=== PATIENT | female | born 1945 | race Caucasian/White ===

== ENCOUNTER 2017-09-18 10:48 | Emergency (ER) | payer MEDICARE ==
[2017-09-18] MEDS ORDERED: ASPIRIN 81 MG TABLET, CHEWABLE PO ONE (11:58)
[2017-09-18 12:41] LABS: ABSOLUTE BASOPHILS # (AUTO) 0.1 10^3/uL (0.0-0.2); ABSOLUTE EOSINOPHILS # (AUTO) 0.1 10^3/uL (0.0-0.6); ABSOLUTE LYMPHOCYTES (AUTO) 2.6 10^3/uL (0.5-4.7); ABSOLUTE MONOCYTES (AUTO) 0.6 10^3/uL (0.1-1.4); ABSOLUTE NEUT (AUTO) 7.2 10^3/uL (1.7-8.2); BASOPHILS % (AUTO) 0.7 % (0-2); EOSINOPHILS % (AUTO) 0.8 % (0-6); HEMATOCRIT 41.8 % (36.0-47.0); HGB HCT DIFFERENCE 0.2; LYMPHOCYTES % (AUTO) 24.3 % (13-45); MEAN CORPUSCULAR HEMOGLOBIN 30.3 pg (27.0-33.4); MEAN CORPUSCULAR HGB CONC 33.5 g/dL (32.0-36.0); MEAN CORPUSCULAR VOLUME 91 fl (80-97); RED BLOOD COUNT 4.61 10^6/uL (3.72-5.28); SEGMENTED NEUTROPHILS % (AUTO) 68.2 % (42-78); WHITE BLOOD COUNT 10.6 10^3/uL (4.0-10.5)
[2017-09-18 13:04] LABS: ALANINE AMINOTRANSFERASE 38 U/L (9-52); ALBUMIN 4.3 g/dL (3.5-5.0); ALKALINE PHOSPHATASE 67 U/L (38-126); ANION GAP 12 (5-19); ASPARTATE AMINO TRANSFERASE 72 U/L (14-36); BILIRUBIN,DIRECT 0.3 mg/dL (0.0-0.4); BILIRUBIN,TOTAL 0.5 mg/dL (0.2-1.3); BLOOD UREA NITROGEN 15 mg/dL (7-20); CALCIUM 9.5 mg/dL (8.4-10.2); CARBON DIOXIDE 26 mmol/L (22-30); CHLORIDE 105 mmol/L (98-107); CREATINE KINASE 389 U/L (30-135); CREATININE RESULT 0.82 mg/dL (0.52-1.25); GLUCOSE 95 mg/dL (75-110); SODIUM 143.2 mmol/L (137-145); TOTAL PROTEIN 7.1 g/dL (6.3-8.2)
[2017-09-18 13:16] LABS: CREATINE KINASE MB 27.2 ng/mL (<4.55)
[2017-09-18 13:22] LABS: TROPONIN I 4.97 ng/mL
[2017-09-18 13:23] LABS: APPEARANCE,URINE SLIGHTLY-CLOUDY; BILIRUBIN,URINE NEGATIVE (NEGATIVE); GLUCOSE, URINE NEGATIVE (NEGATIVE); KETONES,URINE NEGATIVE (NEGATIVE); LEUKOCYTE ESTERASE,URINE NEGATIVE (NEGATIVE); NITRITE,URINE NEGATIVE (NEGATIVE); PROTEIN,URINE NEGATIVE (NEGATIVE); URINE SPECIFIC GRAVITY 1.008; UROBILINOGEN,URINE NEGATIVE mg/dL (<2.0)
[2017-09-18] MEDS ORDERED: HEPARIN SODIUM,PORCINE/D5W 25,000 UNIT/250 ML RTUINJ IV PRN (13:26)
[2017-09-18] MEDS ORDERED: HEPARIN SOD (PORCINE) 1,000 UNIT/ML 10 ML VIAL IV ONE (13:26)
--- NOTE | 2017-09-18 13:28 | RADIOLOGY REPORT (SQ) ---
EXAM DESCRIPTION: CHEST SINGLE VIEW COMPLETED DATE/TIME: 09/18/2017 12:57 pm REASON FOR STUDY: chest pain COMPARISON: None. EXAM PARAMETERS: NUMBER OF VIEWS: One view. TECHNIQUE: Single frontal radiographic view of the chest acquired. RADIATION DOSE: NA LIMITATIONS: None. FINDINGS: LUNGS AND PLEURA: No opacities, masses or pneumothorax. No pleural effusion. MEDIASTINUM AND HILAR STRUCTURES: No masses. Contour normal. HEART AND VASCULAR STRUCTURES: Mild cardiomegaly. Tortuous uncoiled thoracic aorta BONES: Osteoporotic. Right humeral head replacement HARDWARE: None in the chest. OTHER: No other significant finding. IMPRESSION: No acute changes TECHNICAL DOCUMENTATION: JOB ID: [id number] [employer]- All Rights Reserved
--- NOTE | 2017-09-18 13:33 | ER Document Report ---
ED General - General Chief Complaint: Chest Pain Stated Complaint: CHEST PAIN IRREGULAR HEART RATE Time Seen by Provider: 09/18/17 11:55 Mode of Arrival: Ambulatory Information source: Patient Notes: 72 yr old female hx of htn and hypercholesterolemia for which she does not take meds over the past 3 years presents with 2 hours of chest pressure sensation with diaphoresis and sob. pt denies any fevers or chills, denies any similar episode. Pt does note that normal stress test about 15 years ago. pt states upon arrivla chest pain has since resolved TRAVEL OUTSIDE OF THE [place] IN LAST 30 DAYS: No - HPI Onset: Just prior to arrival Onset/Duration: Sudden Quality of pain: Pressure Severity: Moderate Pain Level: 2 Associated symptoms: Chest pain, Shortness of breath, Sweating Exacerbated by: Denies Relieved by: Denies Similar symptoms previously: No Recently seen / treated by doctor: No Past Medical History - Social History Smoking Status: Former Smoker Cigarette use (# per day): No Chew tobacco use (# tins/day): No Smoking Education Provided: No Family History: Reviewed & Not Pertinent Patient has suicidal ideation: No Patient has homicidal ideation: No Renal/ Medical History: Denies: Hx Peritoneal Dialysis Review of Systems - Review of Systems Notes: REVIEW OF SYSTEMS: CONSTITUTIONAL : Denies fever, chills, or sweats. Denies recent illness. EENT: Denies eye, ear, throat, or mouth pain or symptoms. Denies nasal or sinus congestion or discharge. Denies throat, tongue, or mouth swelling or difficulty swallowing. CARDIOVASCULAR: admits to chest pain RESPIRATORY: admits to sob GASTROINTESTINAL: Denies abdominal pain or distention. Denies nausea, vomiting , or diarrhea. Denies blood in vomitus, stools, or per rectum. Denies black, tarry stools. Denies constipation. GENITOURINARY: Denies difficulty urinating, painful urination, burning, frequency, blood in urine, or discharge. FEMALE GENITOURINARY: Denies vaginal bleeding, heavy or abnormal periods, irregular periods. Denies vaginal discharge or odor. MUSCULOSKELETAL: Denies back or neck pain or stiffness. Denies joint pain or swelling. SKIN: Denies rash, lesions or sores. HEMATOLOGIC : Denies easy bruising or bleeding. LYMPHATIC: Denies swollen, enlarged glands. NEUROLOGICAL: Denies confusion or altered mental status. Denies passing out or loss of consciousness. Denies dizziness or lightheadedness. Denies headache. Denies weakness or paralysis or loss of use of either side. Denies problems with gait or speech. Denies sensory loss, numbness, or tingling. Denies seizures. PSYCHIATRIC: Denies anxiety or stress. Denies depression, suicidal ideation, or homicidal ideation. ALL OTHER SYSTEMS REVIEWED AND NEGATIVE. PHYSICAL EXAMINATION: GENERAL: Well-appearing, well-nourished and in no acute distress. HEAD: Atraumatic, normocephalic. EYES: Pupils equal round and reactive to light, extraocular movements intact, conjunctiva are normal. ENT: Nares patent, oropharynx clear without exudates. Moist mucous membranes. NECK: Normal range of motion, supple without lymphadenopathy LUNGS: Breath sounds clear to auscultation bilaterally and equal. No wheezes rales or rhonchi. HEART: Regular rate and rhythm without murmurs ABDOMEN: Soft, nontender, nondistended abdomen. No guarding, no rebound. No masses appreciated. Female : deferred Musculoskeletal: Normal range of motion, no pitting or edema. No cyanosis. NEUROLOGICAL: Cranial nerves grossly intact. Normal speech, normal gait. Normal sensory, motor exams PSYCH: Normal mood, normal affect. SKIN: Warm, Dry, normal turgor, no rashes or lesions noted. Dictation was performed using [employer] voice recognition software Physical Exam - Vital signs Vitals: Temp Pulse Resp BP Pulse Ox 98.2 F 106 H 18 129/85 H 98 09/18/17 11:00 09/18/17 11:00 09/18/17 11:00 09/18/17 11:00 09/18/17 11:00 Course - Re-evaluation Re-evalutation: 09/18/17 13:31 nstemi vs stemi based on elevated tropoin, luly lrepeat ekg [facility] call back from refinery operator polymerization [employer] to see if he would consider this an STEMI 09/18/17 14:01 Dr Azael mendez cardio accepts patient for transfer, states he does not believe it is a stemi, erquests heparin drip which has already been ordered 09/18/17 14:19 pt is compeltely pain free, awaiting transport - Vital Signs Vital signs: Temp Pulse Resp BP Pulse Ox 98.2 F 106 H 19 148/83 H 99 09/18/17 11:00 09/18/17 11:00 09/18/17 13:06 09/18/17 12:48 09/18/17 13:06 - Laboratory Result Diagrams: 09/18/17 12:24 09/18/17 12:24 Laboratory results interpreted by me: 09/18/17 09/18/17 09/18/17 12:24 12:24 12:24 WBC 10.6 H AST 72 H Creatine Kinase 389 H CK-MB (CK-2) 27.20 H - Diagnostic Test Radiology reviewed: Image reviewed, Reports reviewed - EKG Interpretation by Me EKG shows normal: Sinus rhythm, [place], Intervals, QRS Complexes Rate: Tachycardia [place]/QRS: LBBB When compared to previous EKG there are: Previous EKG unavailable Critical Care Note - Critical Care Note Total time excluding time spent on procedures (mins): 32 Comments: 32 minutes of critical care time spent in direct contact evaluating and reevaluating the patient, treating symptoms, reviewing labs and studies and speaking with family and consultants excluding any procedures Discharge - Discharge Clinical Impression: NSTEMI (non-ST elevated myocardial infarction) Condition: Fair Disposition: [facility]
[2017-09-18 13:43] LABS: PROTHROMBIN TIME 12.8 SEC (11.4-15.4)
[2017-09-18 13:49] LABS: PARTIAL THROMBOPLASTIN TIME 23.5 SEC (23.5-35.8)
[2017-09-18] MEDS ORDERED: HEPARIN SOD (PORCINE) 1,000 UNIT/ML 10 ML VIAL IV PRN (16:26)
--- NOTE | 2017-09-18 19:22 | ER Document Report ---
Doctor's Note Notes: 09/18/17 19:21 Patient alert and oriented 3 vital signs stable transport here to pick him up for transfer.
[2017-09-18 19:33] VITALS: BP 157/87
--- NOTE | 2017-09-18 23:13 | EKG REPORT ---
SEVERITY:- ABNORMAL ECG - SINUS RHYTHM LEFT VENTRICULAR HYPERTROPHY PROBABLE INFERIOR INFARCT, OLD LATERAL LEADS ARE ALSO INVOLVED ANTERIOR ST ELEVATION, PROBABLY DUE TO LVH BORDERLINE PROLONGED QT INTERVAL : Confirmed by: Jihan Huang 18-Sep-2017 23:13:07
--- NOTE | 2017-09-18 23:14 | EKG REPORT ---
SEVERITY:- ABNORMAL ECG - SINUS TACHYCARDIA PROBABLE LEFT ATRIAL ABNORMALITY LEFT VENTRICULAR HYPERTROPHY PROBABLE INFERIOR INFARCT, OLD CONSIDER ANTERIOR INFARCT LATERAL LEADS ARE ALSO INVOLVED BORDERLINE PROLONGED QT INTERVAL : Confirmed by: Jihan Huang 18-Sep-2017 23:13:37
== END 2017-09-18 19:30 | disposition short-term general hospital (02) ==
LOC: ER 10:48
DX: I21.4 Non-ST elevation (NSTEMI) myocardial infarction (principal); R06.02 Shortness of breath; I49.9 Cardiac arrhythmia, unspecified; E78.00 Pure hypercholesterolemia, unspecified; I10 Essential (primary) hypertension; Z87.891 Personal history of nicotine dependence
CPT/HCPCS: 93005; 99285; 96365; 96366; 36415; 82553; 82550; 85025; 85610; 85730; 80053; 81001; 84484; 71010; 93010; J1644 ×2; A9270

== ENCOUNTER 2018-02-14 10:20 | Day surgery (SDC) | payer MEDICARE ==
[~2018-02-14 10:20] MED LIST: CHONDR SU A NA/HYALUR INTRAOC KIT (SURGICARE) ONE; EPINEPHRINE INJ/PF 1 MG/1 ML AMPULE ONE; KETOROLAC TROMETHAMINE 0.45% 4 DROP/0.4 ML DROPERETTE OS PRN; LIDOCAINE 1% INJ-PF (10 MG/ML) 30 ML SDV ONE; TOBRAMYCIN SULFATE/DEXAMETH OPH OINTMENT 3.5 GM ONE
[2018-02-14] MEDS: TROPICAMIDE 1% OPH SOLN 3 ML OS PRN ×3 (10:52→11:09)
[2018-02-14] MEDS: BESIFLOXACIN HCL 0.6% OPH SUSP 5 ML BOTTLE OS PRN ×3 (10:52→12:00)
[2018-02-14] MEDS: TETRACAINE HCL 0.5% OPH SOLN 0.6 ML DROPERETTE OS PRN ×3 (10:52→11:43)
[2018-02-14] MEDS: CYCLOPENTOLATE 0.2%/PHENYLEPHRINE 1% OPH SOLN 2 ML OS PRN ×3 (10:52→11:09)
[2018-02-14] MEDS ORDERED: MIDAZOLAM 2 MG/2 ML INJ ONE (11:35)
[2018-02-14] MEDS ORDERED: FENTANYL CITRATE INJ/PF 100 MCG/2 ML AMPUL ONE (11:36)
== END 2018-02-14 12:35 | disposition home or self-care (01) ==
LOC: SC 10:20
PROVIDERS: ATTEND Ophthalmology
DX: H25.12 Age-related nuclear cataract, left eye (principal); H40.1121 Primary open-angle glaucoma, left eye, mild stage; I10 Essential (primary) hypertension; E78.00 Pure hypercholesterolemia, unspecified; I25.10 Atherosclerotic heart disease of native coronary artery without angina pectoris; R01.1 Cardiac murmur, unspecified; I49.9 Cardiac arrhythmia, unspecified; Z95.2 Presence of prosthetic heart valve; Z95.0 Presence of cardiac pacemaker; I25.2 Old myocardial infarction; Z86.14 Personal history of Methicillin resistant Staphylococcus aureus infection; Z79.82 Long term (current) use of aspirin; Z79.01 Long term (current) use of anticoagulants; Z87.891 Personal history of nicotine dependence
CPT/HCPCS: 0191T; 66984; 142; C1783; J0171; J2250; J3010; J3490; V2630

== ENCOUNTER 2018-02-28 07:12 | Day surgery (SDC) | payer MEDICARE ==
[~2018-02-28 07:12] MED LIST changes: -CHONDR SU A NA/HYALUR INTRAOC KIT (SURGICARE) ONE; -EPINEPHRINE INJ/PF 1 MG/1 ML AMPULE ONE; +KETOROLAC TROMETHAMINE 0.45% 4 DROP/0.4 ML DROPERETTE OD PRN; -KETOROLAC TROMETHAMINE 0.45% 4 DROP/0.4 ML DROPERETTE OS PRN; -LIDOCAINE 1% INJ-PF (10 MG/ML) 30 ML SDV ONE; -TOBRAMYCIN SULFATE/DEXAMETH OPH OINTMENT 3.5 GM ONE
[2018-02-28] MEDS: TROPICAMIDE 1% OPH SOLN 3 ML OD PRN ×3 (07:22→07:51)
[2018-02-28] MEDS: CYCLOPENTOLATE 0.2%/PHENYLEPHRINE 1% OPH SOLN 2 ML OD PRN ×3 (07:22→07:51)
[2018-02-28] MEDS: BESIFLOXACIN HCL 0.6% OPH SUSP 5 ML BOTTLE OD PRN ×3 (07:23→08:32)
[2018-02-28] MEDS: TETRACAINE HCL 0.5% OPH SOLN 0.6 ML DROPERETTE OD PRN ×3 (07:24→08:13)
[2018-02-28] MEDS ORDERED: MIDAZOLAM 2 MG/2 ML INJ ONE (07:25)
[2018-02-28] MEDS ORDERED: CHONDR SU A NA/HYALUR INTRAOC KIT (SURGICARE) ONE (07:33)
[2018-02-28] MEDS ORDERED: EPINEPHRINE INJ/PF 1 MG/1 ML AMPULE ONE (07:33)
[2018-02-28] MEDS ORDERED: TOBRAMYCIN SULFATE/DEXAMETH OPH OINTMENT 3.5 GM ONE (07:33)
[2018-02-28] MEDS ORDERED: LIDOCAINE 1% INJ-PF (10 MG/ML) 30 ML SDV ONE (07:33)
== END 2018-02-28 09:03 | disposition home or self-care (01) ==
LOC: SC 07:12
PROVIDERS: ATTEND Ophthalmology
DX: H25.11 Age-related nuclear cataract, right eye (principal); H40.1131 Primary open-angle glaucoma, bilateral, mild stage; Z98.42 Cataract extraction status, left eye; I10 Essential (primary) hypertension; I25.10 Atherosclerotic heart disease of native coronary artery without angina pectoris; E78.00 Pure hypercholesterolemia, unspecified; Z79.82 Long term (current) use of aspirin; Z79.899 Other long term (current) drug therapy; Z79.01 Long term (current) use of anticoagulants; Z87.891 Personal history of nicotine dependence; Z95.2 Presence of prosthetic heart valve; Z95.0 Presence of cardiac pacemaker
CPT/HCPCS: 0191T; 66984; 142; C1783; J0171; J2250; J3490; V2630

== ENCOUNTER 2018-06-01 13:06 | Inpatient (IN) | payer MEDICARE ==
[2018-06-01] MEDS ORDERED: ASPIRIN 81 MG TABLET, CHEWABLE PO ONE (14:03)
--- NOTE | 2018-06-01 14:06 | ER Document Report ---
ED Medical Screen (RME) - General Chief Complaint: Chest Pain Stated Complaint: CHEST PAIN Time Seen by Provider: 06/01/18 13:57 Mode of Arrival: Ambulatory Information source: Patient TRAVEL OUTSIDE OF THE [place] IN LAST 30 DAYS: No - HPI Patient complains to provider of: Pressure Onset: Other - 72-year-old female with a history of coronary artery disease status post bypass as well as other medical problems who presents for evaluation of chest pressure last night for which she took 4 baby aspirin and subsequently went back to sleep waking up today she had some discomfort called the labor arbitrator's office who suggested that she present for evaluation of potential heart attack. She is currently not experiencing any discomfort, she has had episodes of dizziness over the last 2 months - Related Data Allergies/Adverse Reactions: No Known Allergies Allergy (Verified 02/14/18 11:13) Past Medical History - Social History Frequency of alcohol use: None Drug Abuse: Marijuana - Past Medical History Cardiac Medical History: Reports: Hx Heart Attack - 09/2017, Hx Hypertension - medicated Pulmonary Medical History: Denies: Hx Asthma Neurological Medical History: Denies: Hx Cerebrovascular Accident, Hx Seizures Renal/ Medical History: Denies: Hx Peritoneal Dialysis GI Medical History: Reports: Hx Hepatitis - HEP C 15 YEARS AGO/remission. Denies: Hx Hiatal Hernia, Hx Ulcer Infectious Medical History: Reports: Hx Hepatitis - HEP C 15 YEARS AGO/remission Past Surgical History: Reports: Hx Open Heart Surgery - 09/2017, Hx Pacemaker. Denies: Hx Hysterectomy, Hx Mastectomy Physical Exam - Vital signs Vitals: Temp Pulse Resp BP Pulse Ox 98.2 F 70 20 111/74 97 06/01/18 13:23 06/01/18 13:23 06/01/18 13:23 06/01/18 13:23 06/01/18 13:23 Course - Re-evaluation Re-evalutation: 06/01/18 14:05 This 72-year-old female presents for evaluation of an episode of chest pain last night which resolved after taking 4 baby aspirin. She has had episodes of dizziness over the last several months for which she has been seen by her labor arbitrator as well as her general practitioner without any obvious identified causes. On examination she is no obvious abnormalities, no active chest pain at this time. Neurologically she is intact. We will initiate cardiac workup and rule out for this patient. In that she 72 with multiple risk factors will defer further imaging or diagnostics at this time will plan for telemetry monitoring and emergency department. - Vital Signs Vital signs: Temp Pulse Resp BP Pulse Ox 98.2 F 70 20 111/74 97 06/01/18 13:23 06/01/18 13:23 06/01/18 13:23 06/01/18 13:23 06/01/18 13:23 Doctor's Discharge - Discharge Referrals: LOCALMD,NO [Primary Care Provider] - Follow up as needed
--- NOTE | 2018-06-01 14:58 | ER Document Report ---
ED Cardiac - General Chief Complaint: Chest Pain Stated Complaint: CHEST PAIN Time Seen by Provider: 06/01/18 13:57 Mode of Arrival: Ambulatory Information source: Patient TRAVEL OUTSIDE OF THE [place] IN LAST 30 DAYS: No - HPI Patient complains to provider of: Chest pain Was the onset of pain: Sudden Is the pain a: New problem Chest pain location: Substernal Quality of pain: Pressure Severity now: None Severity at worst: Moderate Chest pain precipitating factors: At Rest Positive cardiac history: Yes Associated symptoms: Diaphoresis Exacerbated by: Denies Relieved by: Nothing Similar symptoms previously: Yes Recently seen / treated by doctor: No Notes: 72-year-old female with a history of coronary artery disease status post bypass as well as other medical problems who presents for evaluation of chest pressure last night around 3 AM lasting approximately 1 hour for which she took 4 baby aspirin and subsequently went back to sleep, upon waking up today she had some discomfort and called the paralegal assistant's office who suggested that she present for evaluation. She is currently not experiencing any discomfort, she has had episodes of dizziness over the last 2 months - Related Data Allergies/Adverse Reactions: No Known Allergies Allergy (Verified 02/14/18 11:13) Past Medical History - General Information source: Patient - Social History Smoking Status: Former Smoker Frequency of alcohol use: None Drug Abuse: Marijuana Family History: Reviewed & Not Pertinent Patient has suicidal ideation: No Patient has homicidal ideation: No - Past Medical History Cardiac Medical History: Reports: Hx Heart Attack - 09/2017, Hx Hypertension - medicated Pulmonary Medical History: Denies: Hx Asthma Neurological Medical History: Denies: Hx Cerebrovascular Accident, Hx Seizures Renal/ Medical History: Denies: Hx Peritoneal Dialysis GI Medical History: Reports: Hx Hepatitis - HEP C 15 YEARS AGO/remission. Denies: Hx Hiatal Hernia, Hx Ulcer Infectious Medical History: Reports: Hx Hepatitis - HEP C 15 YEARS AGO/remission Past Surgical History: Reports: Hx Open Heart Surgery - 09/2017, Hx Pacemaker. Denies: Hx Hysterectomy, Hx Mastectomy Review of Systems - Review of Systems Constitutional: Diaphoresis EENT: No symptoms reported Cardiovascular: Chest pain, Dizziness Respiratory: No symptoms reported Gastrointestinal: No symptoms reported Genitourinary: No symptoms reported Female Genitourinary: No symptoms reported Musculoskeletal: No symptoms reported Skin: No symptoms reported Hematologic/Lymphatic: No symptoms reported Neurological/Psychological: No symptoms reported -: Yes All other systems reviewed and negative Physical Exam - Vital signs Vitals: Temp Pulse Resp BP Pulse Ox 98.2 F 70 20 111/74 97 06/01/18 13:23 06/01/18 13:23 06/01/18 13:23 06/01/18 13:23 06/01/18 13:23 Interpretation: Normal - General General appearance: Appears well, Alert - HEENT Head: Normocephalic, Atraumatic Eyes: Normal Pupils: PERRL - Respiratory Respiratory status: No respiratory distress Chest status: Nontender Breath sounds: Normal Chest palpation: Normal - Cardiovascular Rhythm: Regular Heart sounds: Normal auscultation Murmur: No - Abdominal Inspection: Normal Distension: No distension Bowel sounds: Normal Tenderness: Nontender Organomegaly: No organomegaly - Back Back: Normal, Nontender - Extremities General upper extremity: Normal inspection, Nontender, Normal color, Normal ROM , Normal temperature General lower extremity: Normal inspection, Nontender, Normal color, Normal ROM , Normal temperature, Normal weight bearing. No: Liz's sign - Neurological Neuro grossly intact: Yes Cognition: Normal Orientation: AAOx4 [place] Coma Scale Eye Opening: Spontaneous [place] Coma Scale Verbal: Oriented [place] Coma Scale Motor: Obeys Commands [place] Coma Scale Total: 15 Speech: Normal Motor strength normal: LUE, RUE, LLE, RLE Sensory: Normal - Psychological Associated symptoms: Normal affect, Normal mood - Skin Skin Temperature: Warm Skin Moisture: Dry Skin Color: Normal Course - Re-evaluation Re-evalutation: 06/01/18 17:12 Patient discussed with gas pumping station operator at [facility], who recommends patient be admitted to hospitalist service for observation and repeat troponins, recommends the patient does not require transfer at this point in time since she is otherwise stable and chest pain-free , and has had recent bypass surgery within the past year 06/01/18 17:[address] Leavitt, hospitalist here at [facility], who accepts patient for observation admission for further evaluation and treatment - Vital Signs Vital signs: Temp Pulse Resp BP Pulse Ox 98.2 F 70 14 111/74 99 06/01/18 13:23 06/01/18 13:23 06/01/18 15:01 06/01/18 13:23 06/01/18 15:01 - Laboratory Result Diagrams: 06/01/18 15:25 06/01/18 15:25 Laboratory results interpreted by me: 06/01/18 06/01/18 15:25 15:25 BUN 27 H Est GFR (Non-Af Amer) 59 L AST 38 H CK-MB (CK-2) 4.83 H Total Protein 8.4 H - Diagnostic Test Radiology reviewed: Image reviewed, Reports reviewed - EKG Interpretation by Me Additional EKG results interpreted by me: 06/01/18 17:21 Ventricular paced rhythm at a rate of 62 Discharge - Discharge Clinical Impression: Troponin I above reference range Chest pain Qualifiers: Chest pain type: unspecified Qualified Code(s): R07.9 - Chest pain, unspecified Condition: Stable Disposition: ADMITTED OBSERVATION Admitting Provider: Hospitalist Unit Admitted: Telemetry Referrals: LOCALMD,NO [NO LOCAL MD] - Follow up as needed
--- NOTE | 2018-06-01 15:01 | RADIOLOGY REPORT (SQ) ---
EXAM DESCRIPTION: CHEST 2 VIEWS COMPLETED DATE/TIME: 06/01/2018 2:37 pm REASON FOR STUDY: chest pain COMPARISON: None. NUMBER OF VIEWS: Two view. TECHNIQUE: Frontal and lateral radiographic views of the chest acquired. LIMITATIONS: None. FINDINGS: LUNGS AND PLEURA: No opacities, masses or pneumothorax. No pleural effusion. Attenuated bl ood vessels and flattened charan-diaphragms. MEDIASTINUM AND HILAR STRUCTURES: No masses. No contour abnormalities. HEART AND VASCULAR STRUCTURES: Heart normal in size and contour. No evidence for failure. BONES: No acute findings. HARDWARE: Left triple lead pacemaker. CABG. OTHER: No other significant finding. IMPRESSION: COPD. NO ACUTE RADIOGRAPHIC FINDING IN THE CHEST. TECHNICAL DOCUMENTATION: JOB ID: [id number] [employer]- All Rights Reserved Reading location - IP/workstation name: [email or web address]
[2018-06-01 15:39] LABS: ABSOLUTE BASOPHILS # (AUTO) 0.1 10^3/uL (0.0-0.2); ABSOLUTE EOSINOPHILS # (AUTO) 0.2 10^3/uL (0.0-0.6); ABSOLUTE MONOCYTES (AUTO) 0.8 10^3/uL (0.1-1.4); ABSOLUTE NEUT (AUTO) 4.4 10^3/uL (1.7-8.2); BASOPHILS % (AUTO) 0.9 % (0-2); EOSINOPHILS % (AUTO) 2.2 % (0-6); HEMATOCRIT 40.3 % (36.0-47.0); HEMOGLOBIN 13.6 g/dL (12.0-15.5); LYMPHOCYTES % (AUTO) 27.1 % (13-45); MEAN CORPUSCULAR HEMOGLOBIN 31.3 pg (27.0-33.4); MEAN CORPUSCULAR HGB CONC 33.8 g/dL (32.0-36.0); MEAN CORPUSCULAR VOLUME 92 fl (80-97); MONOCYTES % (AUTO) 10.9 % (3-13); PLATELET COUNT 161 10^3/uL (150-450); RED BLOOD COUNT 4.37 10^6/uL (3.72-5.28); RED CELL DISTRIBUTION WIDTH 13.7 % (11.5-14.0); SEGMENTED NEUTROPHILS % (AUTO) 58.9 % (42-78); TOTAL CELLS COUNTED % (AUTO) 100 %; WHITE BLOOD COUNT 7.5 10^3/uL (4.0-10.5)
[2018-06-01 16:07] LABS: ALANINE AMINOTRANSFERASE 23 U/L (9-52); ALBUMIN 4.7 g/dL (3.5-5.0); ALKALINE PHOSPHATASE 64 U/L (38-126); ANION GAP 13 (5-19); ASPARTATE AMINO TRANSFERASE 38 U/L (14-36); BILIRUBIN,DIRECT 0.3 mg/dL (0.0-0.4); BILIRUBIN,TOTAL 0.9 mg/dL (0.2-1.3); BLOOD UREA NITROGEN 27 mg/dL (7-20); CALCIUM 9.6 mg/dL (8.4-10.2); CARBON DIOXIDE 24 mmol/L (22-30); CHLORIDE 104 mmol/L (98-107); CREATINE KINASE 116 U/L (30-135); GLUCOSE 96 mg/dL (75-110); SODIUM 140.5 mmol/L (137-145); TOTAL PROTEIN 8.4 g/dL (6.3-8.2)
[2018-06-01 16:18] LABS: CREATINE KINASE MB 4.83 ng/mL (<4.55)
[2018-06-01 16:20] LABS: TROPONIN I 0.384 ng/mL
[2018-06-01] MEDS ORDERED: MAGNESIUM HYDROXIDE SUSP 30 ML UDCUP PO PRN (17:39)
[2018-06-01] MEDS ORDERED: ACETAMINOPHEN 325 MG TABLET PO PRN (17:39)
[2018-06-01] MEDS ORDERED: OXYCODONE-ACETAMINOPHEN 5-325 MG TABLET PO PRN (17:39)
[2018-06-01] MEDS ORDERED: PROMETHAZINE HCL INJ 25 MG/1 ML VIAL IV PRN (17:39)
[2018-06-01] MEDS ORDERED: TEMAZEPAM 7.5 MG CAPSULE PO PRN (17:39)
--- NOTE | 2018-06-01 18:38 | PDOC H&P ---
History of Present Illness Admission Date/PCP: 06/01/2018 Patient complains of: Chest pain which started last night History of Present Illness: YIMI WAYNE is a 72 year old femaleWho presents with chest pain and chest tightness that seemed similar to what she had in September of last year when she had a heart attack. She is currently chest pain-free. She says she took some baby aspirin and she was actually able to sleep as the chest pain at all called at rest and when she was about to go to bed. She has had no recurrence of the chest pain however she called her assistant broker this morning who advised her to come to the emergency room for evaluation. It appears that she had a CABG done as well as valve replacement back in September. She says she has been compliant with her medications since then. She denies any nausea vomiting fever cough diaphoresis dizziness shortness of breath or any other pertinent symptoms Past Medical History Cardiac Medical History: Reports: Myocardial Infarction - 09/2017, Hypertension - medicated Pulmonary Medical History: Denies: Asthma Neurological Medical History: Denies: Seizures GI Medical History: Reports: Hepatitis - HEP C 15 YEARS AGO/remission Denies: Hiatal Hernia Hematology: Denies: Anemia, Sickle Cell Disease Past Surgical History Past Surgical History: Reports: Coronary Artery Bypass Graft, Pacemaker Denies: Amputation, Hysterectomy, Mastectomy Social History Smoking Status: Former Smoker Family History Family History: Reviewed & Not Pertinent Parental Family History Reviewed: No Children Family History Reviewed: No Sibling(s) Family History Reviewed.: No Medication/Allergy Home Medications: Apixaban [Eliquis 5 mg Tablet] 5 mg PO BID 02/09/18 Aspirin [Aspirin 81 mg Chewable Tablet] 81 mg PO DAILY 02/09/18 Atorvastatin Calcium [Lipitor 40 mg Tablet] 40 mg PO QHS 02/09/18 Lisinopril [Prinivil] 10 mg PO DAILY 02/09/18 Melatonin 3 mg PO DAILY 02/09/18 Metoprolol Succinate 25 mg PO DAILY 02/09/18 Allergies/Adverse Reactions: No Known Allergies Allergy (Verified 02/14/18 11:13) Review of Systems All systems: reviewed and no additional remarkable complaints except as stated Physical Exam Vital Signs: Temp Pulse Resp BP Pulse Ox 98.2 F 70 13 155/68 H 99 06/01/18 13:23 06/01/18 13:23 06/01/18 17:55 06/01/18 17:55 06/01/18 17:55 Intake & Output 05/31/18 06/01/18 06/02/18 06:59 06:59 06:59 Weight 74.8 kg General appearance: PRESENT: no acute distress, well-developed, well-nourished Head exam: PRESENT: atraumatic, normocephalic Eye exam: PRESENT: conjunctiva pink, EOMI, PERRLA. ABSENT: scleral icterus Ear exam: PRESENT: normal external ear exam Mouth exam: PRESENT: moist, tongue midline Neck exam: ABSENT: carotid bruit, JVD, lymphadenopathy, thyromegaly Respiratory exam: PRESENT: clear to auscultation lucia. ABSENT: rales, rhonchi, wheezes Cardiovascular exam: PRESENT: RRR, +S1, +S2, systolic murmur, other - Systolic click. ABSENT: diastolic murmur, rubs Pulses: PRESENT: normal dorsalis pedis pul Vascular exam: PRESENT: normal capillary refill GI/Abdominal exam: PRESENT: normal bowel sounds, soft. ABSENT: distended, guarding, mass, organolmegaly, rebound, tenderness Rectal exam: PRESENT: deferred Extremities exam: PRESENT: full ROM. ABSENT: calf tenderness, clubbing, pedal edema Neurological exam: PRESENT: alert, awake, oriented to person, oriented to place , oriented to time, oriented to situation, CN II-XII grossly intact. ABSENT: motor sensory deficit Psychiatric exam: PRESENT: appropriate affect, normal mood. ABSENT: homicidal ideation, suicidal ideation Skin exam: PRESENT: dry, intact, warm. ABSENT: cyanosis, rash Results Laboratory Results: 06/01/18 15:25 06/01/18 15:25 06/01/18 06/01/18 15:25 15:25 WBC 7.5 RBC 4.37 Hgb 13.6 Hct 40.3 MCV 92 MCH 31.3 MCHC 33.8 RDW 13.7 Plt Count 161 Seg Neutrophils % 58.9 Lymphocytes % 27.1 Monocytes % 10.9 Eosinophils % 2.2 Basophils % 0.9 Absolute Neutrophils 4.4 Absolute Lymphocytes 2.0 Absolute Monocytes 0.8 Absolute Eosinophils 0.2 Absolute Basophils 0.1 Sodium 140.5 Potassium 5.0 Chloride 104 Carbon Dioxide 24 Anion Gap 13 BUN 27 H Creatinine 0.94 Est GFR ( Amer) > 60 Est GFR (Non-Af Amer) 59 L Glucose 96 Calcium 9.6 Total Bilirubin 0.9 AST 38 H ALT 23 Alkaline Phosphatase 64 Total Protein 8.4 H Albumin 4.7 06/01/18 06/01/18 15:25 15:25 Creatine Kinase 116 CK-MB (CK-2) 4.83 H Troponin I 0.384 Impressions: Chest X-Ray 06/01/18 14:04 IMPRESSION: COPD. NO ACUTE RADIOGRAPHIC FINDING IN THE CHEST. Assessment & Plan - Diagnosis (1) CAD (coronary artery disease), [place] coronary artery Qualifiers: [place] vs. transplanted heart: [place] heart Is this a current diagnosis for this admission?: Yes Plan: She is status post recent CABG and valvular repair as per patient. It appears the ED physician did call her assistant broker who suggested for patient to be monitored in hospital With serial troponins. It appears cardiology was also consulted by the ER physicians (2) Chest pain Qualifiers: Chest pain type: unspecified Qualified Code(s): R07.9 - Chest pain, unspecified Is this a current diagnosis for this admission?: Yes Plan: Patient is currently chest pain-free and EKG shows no acute changes. Troponin is slightly elevated but this may be residual from her recent [place]. We will trend her troponins (3) Troponin I above reference range Is this a current diagnosis for this admission?: Yes - Time Time Spent: 30 to 50 Minutes Medications reviewed and adjusted accordingly: Yes Anticipated discharge: Home Within: within 24 hours - Inpatient Certification Based on my medical assessment, after consideration of the patient's comorbidities, presenting symptoms, or acuity I expect that the services needed warrant INPATIENT care.: Yes Medical Necessity: Need For Continuous Telemetry Monitoring
[2018-06-01] MEDS: APIXABAN 5 MG TABLET PO SCH (20:07)
--- NOTE | 2018-06-01 20:42 | EKG REPORT ---
SEVERITY:- ABNORMAL ECG - A-V DUAL-PACED COMPLEXES W/ SOME INHIBITION : Confirmed by: Jihan Huang 01-Jun-2018 17:42:32
--- NOTE | 2018-06-01 20:42 | EKG REPORT ---
SEVERITY:- ABNORMAL ECG - ATRIAL-SENSED VENTRICULAR-PACED RHYTHM : Confirmed by: Jihan Huang 01-Jun-2018 17:42:10
[2018-06-01 21:30] LABS: APPEARANCE,URINE SLIGHTLY-CLOUDY; BILIRUBIN,URINE NEGATIVE (NEGATIVE); COLOR,URINE YELLOW; GLUCOSE, URINE NEGATIVE (NEGATIVE); KETONES,URINE NEGATIVE (NEGATIVE); LEUKOCYTE ESTERASE,URINE NEGATIVE (NEGATIVE); NITRITE,URINE NEGATIVE (NEGATIVE); PROTEIN,URINE NEGATIVE (NEGATIVE); URINE SPECIFIC GRAVITY 1.011; UROBILINOGEN,URINE NEGATIVE mg/dL (<2.0)
[2018-06-01] MEDS ORDERED: ENOXAPARIN SODIUM INJ 80 MG/0.8 ML DISP.SYRIN SUBCUT SCH (22:00)
[2018-06-01] MEDS ORDERED: ATORVASTATIN CALCIUM 40 MG TABLET PO SCH (22:00)
[2018-06-02 08:15] LABS: CREATINE KINASE MB 3.94 ng/mL (<4.55); TROPONIN I 0.423 ng/mL
[2018-06-02] MEDS: APIXABAN 5 MG TABLET PO SCH ×2 (09:05→21:27)
--- NOTE | 2018-06-02 09:29 | EKG REPORT ---
SEVERITY:- ABNORMAL ECG - ATRIAL-SENSED VENTRICULAR-PACED RHYTHM : Confirmed by: Jihan Huang 02-Jun-2018 09:29:19
--- NOTE | 2018-06-02 09:29 | EKG REPORT ---
SEVERITY:- ABNORMAL ECG - ATRIAL-SENSED VENTRICULAR-PACED RHYTHM : Confirmed by: Jihan Huang 02-Jun-2018 09:29:10
[2018-06-02] MEDS ORDERED: LISINOPRIL 10 MG TABLET PO SCH (10:00)
[2018-06-02] MEDS ORDERED: ASPIRIN 81 MG TABLET, CHEWABLE PO SCH (10:00)
[2018-06-02] MEDS ORDERED: METOPROLOL SUCCINATE 25 MG TAB.SR.24H PO SCH (10:00)
--- NOTE | 2018-06-02 12:45 | PDOC CONSULTATION ---
Consultation Consult Date: 06/01/18 Attending physician:: JUANA WHITESIDE Consult reason:: Chest pain History of Present Illness Admission Date/PCP: 06/01/18 18:57 Patient complains of: Chest pain History of Present Illness: YIMI WAYNE is a 72 year old femaleWho presents with chest pain and chest tightness that seemed similar to what she had in September of last year when she had a heart attack. She is currently chest pain-free. She says she took some baby aspirin and she was actually able to sleep as the chest pain at all called at rest and when she was about to go to bed. She has had no recurrence of the chest pain however she called her assistant food service director this morning who advised her to come to the emergency room for evaluation. It appears that she had a CABG done as well as valve replacement back in September. She says she has been compliant with her medications since then. She denies any nausea vomiting fever cough diaphoresis dizziness shortness of breath or any other pertinent symptoms. This history obtained by the hospitalist was reviewed and confirmed with the patient. Patient is denying any chest pain at this point. However she did indicate to me that if something invasive is needed, she would like to be transferred to [facility]. Past Medical History Cardiac Medical History: Reports: Myocardial Infarction - 09/2017, Hypertension - medicated Pulmonary Medical History: Denies: Asthma Neurological Medical History: Denies: Seizures GI Medical History: Reports: Hepatitis - HEP C 15 YEARS AGO/remission Denies: Hiatal Hernia Hematology: Denies: Anemia, Sickle Cell Disease Past Surgical History Past Surgical History: Reports: Coronary Artery Bypass Graft, Pacemaker, Valve Replacement Denies: Amputation, Hysterectomy, Mastectomy Social History Information Source: Patient Smoking Status: Former Smoker - Advance Directive Resuscitation Status: Full Code Family History Family History: Reviewed & Not Pertinent Parental Family History Reviewed: Yes Children Family History Reviewed: Yes Sibling(s) Family History Reviewed.: Yes Medication/Allergy Home Medications: Apixaban [Eliquis 5 mg Tablet] 5 mg PO Q12 06/01/18 Aspirin [Ecotrin 81 mg EC Tablet] 81 mg PO DAILY 06/01/18 Atorvastatin Calcium [Lipitor 40 mg Tablet] 40 mg PO QHS 06/01/18 Lisinopril [Prinivil 10 mg Tablet] 10 mg PO DAILY 06/01/18 Metoprolol Succinate [Toprol Xl 25 mg Tab.sr] 25 mg PO DAILY 06/01/18 Multivitamin [Tab-A-[place] (Multiple Vitamin) Tablet] 1 tab PO DAILY 06/01/18 Vitamin B Complex [B Complex] 1 cap PO DAILY 06/01/18 Allergies/Adverse Reactions: No Known Allergies Allergy (Verified 02/14/18 11:13) Review of Systems Review of Systems: Please see history of present illness and past medical history as wall. Constitutional: No fever or chills reported. Head : No recent chronic headaches, recent head injury. Eyes: No recent eye pain, diplopia, redness, discharge, acute visual changes. Ears: No recent chronic ear pain, acute hearing loss, ear discharge. Oral cavity: No recent ulcerations, bleeding, oral cavity discomfort. Neck: No recent acute neck pain reported. Hematologic: No recent easy bruising or bleeding. Lymphatic: No recent lymph node enlargement reported. Cardiovascular system review: See history of present illness. Respiratory system review: No hemoptysis or blood clots in the lungs reported. Mild Shortness of breath on exertion Gastrointestinal system review: Negative for any recent acute hematemesis, melena. Genitourinary system review: No recent acute or chronic hematuria, flank pain, UTI etc. reported. Skin system review: Negative for any recent abnormal bruising, no rash, no pruritus reported. Neurologic: No prior history of strokes, mini strokes, seizure disorder. Psychologic: No history of major psychosis or major depression reported. Musculoskeletal: Minor aches and pains reported. No acute joint swelling reported. Endocrine: No recent polyuria, polydipsia, recent heat or cold intolerance. Physical Exam Vital Signs: Temp Pulse Resp BP Pulse Ox 98.4 F 70 16 107/62 97 06/01/18 20:01 06/01/18 13:23 06/01/18 20:01 06/01/18 20:01 06/01/18 20:01 Exam: GENERAL: well-nourished and in no acute distress. Alert and oriented x3 HEAD: Atraumatic, normocephalic. EYES: Pupils equal round and reactive to light, extraocular movements intact, sclera anicteric, conjunctiva are normal. ENT: TMs normal, nares patent, oropharynx clear without exudates. Moist mucous membranes. No oral ulcerations or bleeding gums noted NECK: supple without lymphadenopathy. Trachea is central. No cervical or axillary lymphadenopathy noted. Carotids are 2+, JVD WNL LUNGS: Respiration seems nonlabored, no significant accessory muscle action noted. Breath sounds clear to auscultation bilaterally and equal noted. No wheezes rales or rhonchi noted. No significant dullness noted on percussion. CHEST: Palpation of the chest wall shows no significant chest wall tenderness. 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 ABDOMEN: Soft, no significant tenderness appreciated, normoactive bowel sounds. No guarding, no rebound. No rigidity noted . No masses appreciated. EXTREMITIES: Pedal pulses are 1-2+, no calf tenderness noted. No clubbing or cyanosis. negative pedal edema noted NEUROLOGICAL: Focused neurological exam showed no significant neurologic deficit. Normal speech, no focal weakness appreciated. PSYCH: Normal mood, normal affect. Judgment and insight within normal limits. SKIN: No significant ecchymosis, skin is noted to be warm. MUSCULOSKELETAL EXAM: No significant acute joint swelling noted. Results EKG Comments: A sense, v paced rhythm. Impressions: Chest X-Ray 06/01/18 14:04 IMPRESSION: COPD. NO ACUTE RADIOGRAPHIC FINDING IN THE CHEST. Assessment & Plan - Diagnosis (1) Chest pain Qualifiers: Chest pain type: unspecified Qualified Code(s): R07.9 - Chest pain, unspecified Is this a current diagnosis for this admission?: Yes (2) CAD (coronary artery disease), [place] coronary artery Qualifiers: [place] vs. transplanted heart: [place] heart Is this a current diagnosis for this admission?: Yes (3) Non-STEMI (non-ST elevated myocardial infarction) Is this a current diagnosis for this admission?: Yes (4) History of heart valve replacement Is this a current diagnosis for this admission?: Yes (5) Hypertension Qualifiers: Hypertension type: essential hypertension Qualified Code(s): I10 - Essential (primary) hypertension Is this a current diagnosis for this admission?: Yes (6) Dyslipidemia Is this a current diagnosis for this admission?: Yes (7) Biventricular cardiac pacemaker in situ Is this a current diagnosis for this admission?: Yes - Notes Notes: Chest pain: Patient had chest pain and positive troponin I, therefore does rule in for non-STEMI according to WHO criteria. At this point however patient is chest pain-free and stable. Did discuss further evaluation with either heart catheterization or noninvasive assessment for extent of ischemia. Patient does wants to think over her option however she did make it clear that if she needed any invasive procedure, she would like to be transferred to [facility]. For risk assessment, will obtain a 2D echocardiogram. If 2D echocardiogram shows normal LVEF, then medical management may be a reasonable option, Especially if patient remains stable. CAD: Recommend optimization of medical management. Recommend statins, beta- jasmyn, NAN inhibitor/ARB. Non-STEMI: Patient has ruled in for this by way of cardiac enzymes and presents of chest pain. Follow cardiac enzymes and EKGs on a daily basis. History of heart valve replacement. Patient does give a history of heart valve replacement. Will try obtain records from [facility]. Hypertension: Blood pressure goal should be 135/85 or less in this patient. Dyslipidemia: Agree with high potency statin therapy. Biventricular ICD pacemaker in place: Currently patient is stable and review of telemetry strip shows normal functioning. - Time Time Spent: 30 to 50 Minutes - CODE STATUS was discussed, patient remains full code. Multiple medical problems were addressed. More than 50% of the time spent coordinating care, discussing management plans with involved caregivers. Management plans discussed with involved personnels. Medical decision making was of moderate to high complexity, patient's has multiple comorbidities. Medications reviewed and adjusted accordingly: Yes
--- NOTE | 2018-06-02 12:49 | PDOC PROGRESS REPORT ---
Subjective Progress Note for:: 06/02/18 Subjective:: Patient seems to be doing better with gradual improvement. Pt is denying any chest arm or neck discomfort. Patient denying any PND, orthopnea. Patient denied any sustained palpitations, dizziness, syncope, near syncope. Patient denying any fever chills. Patient denying any other significant discomfort. Patient is maintaining a sensed V paced rhythm Review of systems: Rest review of systems negative. Medications: Medications have been reviewed. Reason For Visit: CHEST PAIN ELEVATED TROPONIN I LEVEL Physical Exam Vital Signs: Temp Pulse Resp BP Pulse Ox 98.4 F 63 18 105/56 L 96 06/02/18 11:41 06/02/18 11:41 06/02/18 11:41 06/02/18 11:41 06/02/18 11:41 Intake & Output 06/01/18 06/02/18 06/03/18 06:59 06:59 06:59 Intake Total 675 Balance 675 Weight 73.7 kg Exam: GENERAL: well-nourished and in no acute distress. Alert and oriented x3 HEAD: Atraumatic, normocephalic. EYES: Pupils equal round and reactive to light, extraocular movements intact, sclera anicteric, conjunctiva are normal. ENT: TMs normal, nares patent, oropharynx clear without exudates. Moist mucous membranes. No oral ulcerations or bleeding gums noted NECK: supple without lymphadenopathy. Trachea is central. No cervical or axillary lymphadenopathy noted. Carotids are 2+, JVD WNL LUNGS: Respiration seems nonlabored, no significant accessory muscle action noted. Breath sounds clear to auscultation bilaterally and equal noted. No wheezes rales or rhonchi noted. No significant dullness noted on percussion. CHEST: Palpation of the chest wall shows no significant chest wall tenderness. 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 ABDOMEN: Soft, no significant tenderness appreciated, normoactive bowel sounds. No guarding, no rebound. No rigidity noted . No masses appreciated. EXTREMITIES: Pedal pulses are 1-2+, no calf tenderness noted. No clubbing or cyanosis. negative pedal edema noted NEUROLOGICAL: Focused neurological exam showed no significant neurologic deficit. Normal speech, no focal weakness appreciated. PSYCH: Normal mood, normal affect. Judgment and insight within normal limits. SKIN: No significant ecchymosis, skin is noted to be warm. MUSCULOSKELETAL EXAM: No significant acute joint swelling noted. Results Laboratory Results: 06/01/18 21:04 Urine Color YELLOW Urine Appearance SLIGHTLY-CLOUDY Urine pH 5.0 Ur Specific [place] 1.011 Urine Protein NEGATIVE Urine Glucose (UA) NEGATIVE Urine Ketones NEGATIVE Urine Blood NEGATIVE Urine Nitrite NEGATIVE Ur Leukocyte Esterase NEGATIVE Urine WBC (Auto) 1 Urine RBC (Auto) 1 06/02/18 06/02/18 06/02/18 00:52 00:52 00:52 Creatine Kinase 97 CK-MB (CK-2) 4.78 H Troponin I 0.475 06/02/18 06/02/18 06:57 06:57 Creatine Kinase 107 CK-MB (CK-2) 3.94 Troponin I 0.423 EKG Comments: Shows a sensed V paced rhythm. EKG same Impressions: Chest X-Ray 06/01/18 14:04 IMPRESSION: COPD. NO ACUTE RADIOGRAPHIC FINDING IN THE CHEST. Assessment & Plan - Diagnosis (1) Chest pain Qualifiers: Chest pain type: unspecified Qualified Code(s): R07.9 - Chest pain, unspecified Is this a current diagnosis for this admission?: Yes (2) CAD (coronary artery disease), [place] coronary artery Qualifiers: [place] vs. transplanted heart: [place] heart Is this a current diagnosis for this admission?: Yes (3) Non-STEMI (non-ST elevated myocardial infarction) Is this a current diagnosis for this admission?: Yes (4) History of heart valve replacement Is this a current diagnosis for this admission?: Yes (5) Hypertension Qualifiers: Hypertension type: essential hypertension Qualified Code(s): I10 - Essential (primary) hypertension Is this a current diagnosis for this admission?: Yes (6) Dyslipidemia Is this a current diagnosis for this admission?: Yes (7) Biventricular cardiac pacemaker in situ Is this a current diagnosis for this admission?: Yes - Notes Notes: Have ordered a 2D echocardiogram to be done on an urgent basis today. If LVEF is WNL, will talk to the patient about a nuclear stress test however patient is preferring to be transferred to [facility] should such need arise. Chest pain: Patient had chest pain and positive troponin I, therefore does rule in for non-STEMI according to WHO criteria. At this point however patient is chest pain-free and stable. Did discuss further evaluation with either heart catheterization or noninvasive assessment for extent of ischemia. Patient does wants to think over her option however she did make it clear that if she needed any invasive procedure, she would like to be transferred to [facility]. For risk assessment, will obtain a 2D echocardiogram. If 2D echocardiogram shows normal LVEF, then medical management may be a reasonable option, specially if patient remains stable. CAD: Recommend optimization of medical management. Recommend statins, beta- jasmyn, NAN inhibitor/ARB. Non-STEMI: Patient has ruled in for this by way of cardiac enzymes and presents of chest pain. Follow cardiac enzymes and EKGs on a daily basis. History of heart valve replacement. Patient does give a history of heart valve replacement. Will try obtain records from [facility]. Hypertension: Blood pressure goal should be 135/85 or less in this patient. Dyslipidemia: Agree with high potency statin therapy. Biventricular ICD pacemaker in place: Currently patient is stable and review of telemetry strip shows normal functioning. - Time Time with patient: Greater than 35 minutes - CODE STATUS was discussed, patient remains full code. More than 50% of the time spent coordinating care, discussing management plans with involved caregivers. Management plans discussed with involved personnels. Medical decision making was of moderate to high complexity, patient's has multiple comorbidities. Medications reviewed and adjusted accordingly: Yes
[2018-06-02 15:05] LABS: CREATINE KINASE MB 3.42 ng/mL (<4.55); TROPONIN I 0.292 ng/mL
--- NOTE | 2018-06-02 15:31 | PROGRESS NOTE E ---
Progress Note NAME: YIMI WAYNE : 1945 AGE: 72Y DATE: 06/02/2018 ROOM: 323 SUBJECTIVE: The patient is currently out of bed. She is ambulating around. The patient denies any nausea, vomiting, or diarrhea. No shortness of breath or dizziness. No further chest pain. The patient has been afebrile. Blood pressure has been in good range. The patient does not voice any other concerns at this time. REVIEW OF SYSTEMS: The rest of the review of systems is negative. MEDICATIONS: Medications have been reviewed. OBJECTIVE: GENERAL: The patient is a 72-year-old female who is awake, alert, and oriented to person, place, time, and situation. She is verbal, conversational. Does not appear to be in any acute distress. VITAL SIGNS: Temperature 98.4, pulse 63, respirations 18, blood pressure 105/56, oxygen saturation 96% on room air. SKIN: Warm and dry. No rashes, not diaphoretic. HEENT: Pupils equal, round, and reactive to light and accommodation. Conjunctivae pink. There is no evidence of JVP. CVS: Heart is regular, no rub. CHEST: Clear, symmetrical, unlabored. ABDOMEN: Soft, nontender, nondistended. BACK: No CVA tenderness or sacral edema. EXTREMITIES: No clubbing, cyanosis, or edema. PSYCHIATRIC: Appropriate affect. Pleasant mood. DIAGNOSTICS: Lab values are as follows. Chemistry obtained on 06/02/2018: CK 103, CK/MB 3.94, troponin 0.423. Hematology obtained on 06/01/2018: WBC 7.5, hemoglobin 13.6, hematocrit 40.3, platelet count 161,000. ASSESSMENT AND PLAN: 1. CHEST PAIN. Echocardiogram is pending. Do appreciate Cardiology input on this. 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 This is completely reasonable. Will follow. Troponin has peaked. 2. HISTORY OF HEPATITIS C. This is in apparent remission. 3. CORONARY ARTERY DISEASE AND VALVULAR DISEASE. Defer transfer and await ECHO per Cardiology recommendations. DISPOSITION: The patient is a full code. Pending the patient's symptomatology and diagnostic findings, will reevaluate as needed. Time spent on this followup including assessment, plan, physical examination, patient education, and review of records, is 25 minutes. DICTATING PHYSICIAN: DAI GRIFFITHS NP [id number] PHY#: [id number] ID: [id number] JOB#: [id number] ACCT: [id number] cc: > MTDD
--- NOTE | 2018-06-02 17:04 | XCELERA REPORT ---
[address] [address] Transthoracic Echocardiogram Report Name: YIMI WAYNE Age: 72 yrs Gender: Female : 1945 Patient Status: Inpatient Patient Location: [facility]^A Study Date: 06/02/2018 10:56 AM Height: 62 in Weight: 162 lb BSA: 1.7 m2 Procedure: A complete two-dimensional transthoracic echocardiogram was performed (2D, M-mode, spectral and color flow Doppler). The study was technically difficult with many images being suboptimal in quality. Reason For Study: NSTEMI Ordering Physician: JIHAN GARCIA Performed By: Mikey Hughes Interpretation Summary The left ventricular ejection fraction is preserved. Consider additional methods to assess LVEF such as MUGA scan, CTA heart, cardiac MRI, JOB, etc. if clinically indicated. The left ventricle is grossly normal size. There is mild concentric left ventricular hypertrophy. Regional wall motion abnormalities cannot be excluded due to limited visualization. Doppler measurements suggest pseudonormalized left ventricular relaxation, which is associated with grade II/IV or mild to moderate diastolic dysfunction The right ventricular systolic function is normal. The left atrium is mildly dilated. There is moderate mitral stenosis There is a mild amount of mitral regurgitation There is moderate mitral annular calcification. There is mild to moderate mitral leaflet calcification. There is a bioprosthetic aortic valve. The gradients through the prosthetic aortic valve are increased for this type of valve suggesting mild stenosis The aortic root is not well visualized. The inferior vena cava appeared normal and decreased > 50% with respiration (RAP 5-10 mmHg) There is no pericardial effusion. MMode/2D Measurements & Calculations RVDd: 3.2 cm LVIDd: 4.5 cm FS: 39.7 % Ao root diam: 1.9 cm IVSd: 0.83 cm LVIDs: 2.7 cm EDV(Teich): 91.3 ml Ao root area: 2.8 cm2 LVPWd: 0.79 cm ESV(Teich): 27.0 ml LA dimension: 4.0 cm EF(Teich): 70.4 % LVOT diam: 1.8 cm LVOT area: 2.5 cm2 Doppler Measurements & Calculations MV E max mariel: MV P1/2t max mariel: Ao V2 max: LV V1 max P.7 cm/sec 88.2 cm/sec 212.3 cm/sec 11.9 mmHg MV A max mariel: MV P1/2t: 178.4 msec Ao max PG: LV V1 max: 142.0 cm/sec MVA(P1/2t): 1.2 cm2 18.0 mmHg 172.8 cm/sec MV E/A: 0.62 MV dec slope: ADELSO(V,D): 2.0 cm2 144.8 cm/sec2 MV dec time: 0.62 sec PA V2 max: TR max mariel: MV P1/2t-pr_phl: 92.8 cm/sec 240.1 cm/sec 178.4 msec PA max P.4 mmHgTR max P.1 mmHg Left Ventricle The left ventricle is grossly normal size. There is mild concentric left ventricular hypertrophy. The left ventricular ejection fraction is preserved. Consider additional methods to assess LVEF such as MUGA scan, CTA heart, cardiac MRI, JOB, etc. if clinically indicated. Doppler measurements suggest pseudonormalized left ventricular relaxation, which is associated with grade II/IV or mild to moderate diastolic dysfunction. Regional wall motion abnormalities cannot be excluded due to limited visualization. Right Ventricle The right ventricle is grossly normal size. There is normal right ventricular wall thickness. The right ventricular systolic function is normal. Atria The right atrium is normal in size. The left atrium is mildly dilated. Interarterial septum not well visualized and not well dopplered. Cannot comment on ASD/PFO presence. Mitral Valve There is mild to moderate mitral leaflet calcification. There is moderate mitral annular calcification. There is moderate mitral stenosis. There is a mild amount of mitral regurgitation. Aortic Valve The aortic valve is not well visualized secondary to technical limitations. There is a bioprosthetic aortic valve. The gradients through the prosthetic aortic valve are increased for this type of valve suggesting mild stenosis. Tricuspid Valve The tricuspid valve is not well visualized secondary to technical limitations. There is no tricuspid stenosis. There is a trace or physiologic amount of tricuspid regurgitation. Tricuspid regurgitation jet envelope not well defined to measure RV systolic pressure accurately. Pulmonic Valve The pulmonic valve is not well visualized. Great Vessels The aortic root is not well visualized. The inferior vena cava appeared normal and decreased > 50% with respiration (RAP 5-10 mmHg). Effusions There is no pericardial effusion. : JIHAN GARCIA > Jihan Garcia
[2018-06-02] MEDS: ATORVASTATIN CALCIUM 40 MG TABLET PO SCH (21:27)
[2018-06-03] MEDS ORDERED: (PENDING PHARMACY ID) (Vitamin B Complex [B Complex] 1 CAP) PO SCH (10:00)
[2018-06-03] MEDS: METOPROLOL SUCCINATE 25 MG TAB.SR.24H PO SCH (11:25)
[2018-06-03] MEDS: APIXABAN 5 MG TABLET PO SCH ×2 (11:25→22:07)
[2018-06-03] MEDS: LISINOPRIL 10 MG TABLET PO SCH (11:26)
[2018-06-03] MEDS: ASPIRIN 81 MG TABLET, ENT COATED PO SCH (11:26)
[2018-06-03 16:05] LABS: ANION GAP 14 (5-19); BLOOD UREA NITROGEN 27 mg/dL (7-20); CALCIUM 9.4 mg/dL (8.4-10.2); CARBON DIOXIDE 23 mmol/L (22-30); CHLORIDE 106 mmol/L (98-107); GLUCOSE 86 mg/dL (75-110); POTASSIUM 4.3 mmol/L (3.6-5.0); SODIUM 143.4 mmol/L (137-145)
--- NOTE | 2018-06-03 17:02 | PDOC PROGRESS REPORT ---
Subjective Progress Note for:: 06/03/18 Subjective:: Patient claims she has ambulated inside the room and also. There has been no recurrence of chest pain. She is claiming to be feeling fine. Patient now wishes to have an ischemia evaluation here at [facility] however if she needs heart catheterization, [facility]. Patient EKG today shows sinus with a sense and ventricular paced beats Patient seems to be doing better with gradual improvement. Pt is denying any chest arm or neck discomfort. Patient denying any PND, orthopnea. Patient denied any sustained palpitations, dizziness, syncope, near syncope. Patient denying any fever chills. Patient denying any other significant discomfort. Patient is maintaining a sensed V paced rhythm Review of systems: Rest review of systems negative. Medications: Medications have been reviewed. Reason For Visit: CHEST PAIN ELEVATED TROPONIN I LEVEL Physical Exam Vital Signs: Temp Pulse Resp BP Pulse Ox 98.6 F 70 18 115/85 98 06/03/18 10:50 06/03/18 14:00 06/03/18 10:50 06/03/18 11:15 06/03/18 10:50 Intake & Output 06/02/18 06/03/18 06/04/18 06:59 06:59 06:59 Intake Total 550 685 Balance 550 685 Weight 73.6 kg Exam: GENERAL: well-nourished and in no acute distress. Alert and oriented x3 HEAD: Atraumatic, normocephalic. EYES: Pupils equal round and reactive to light, extraocular movements intact, sclera anicteric, conjunctiva are normal. ENT: TMs normal, nares patent, oropharynx clear without exudates. Moist mucous membranes. No oral ulcerations or bleeding gums noted NECK: supple without lymphadenopathy. Trachea is central. No cervical or axillary lymphadenopathy noted. Carotids are 2+, JVD WNL LUNGS: Respiration seems nonlabored, no significant accessory muscle action noted. Breath sounds clear to auscultation bilaterally and equal noted. No wheezes rales or rhonchi noted. No significant dullness noted on percussion. CHEST: Palpation of the chest wall shows no significant chest wall tenderness. 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 ABDOMEN: Soft, no significant tenderness appreciated, normoactive bowel sounds. No guarding, no rebound. No rigidity noted . No masses appreciated. EXTREMITIES: Pedal pulses are 1-2+, no calf tenderness noted. No clubbing or cyanosis. negative pedal edema noted NEUROLOGICAL: Focused neurological exam showed no significant neurologic deficit. Normal speech, no focal weakness appreciated. PSYCH: Normal mood, normal affect. Judgment and insight within normal limits. SKIN: No significant ecchymosis, skin is noted to be warm. MUSCULOSKELETAL EXAM: No significant acute joint swelling noted. Results Laboratory Results: 06/03/18 15:25 06/03/18 15:25 Sodium 143.4 Potassium 4.3 Chloride 106 Carbon Dioxide 23 Anion Gap 14 BUN 27 H Creatinine 0.92 Est GFR ( Amer) > 60 Est GFR (Non-Af Amer) > 60 Glucose 86 Calcium 9.4 Magnesium 1.9 EKG Comments: Telemetry shows a sensed V paced rhythm. No significant dysrhythmias noted. There has been double counting of T waves which was noted to be tall. Impressions: Chest X-Ray 06/01/18 14:04 IMPRESSION: COPD. NO ACUTE RADIOGRAPHIC FINDING IN THE CHEST. Assessment & Plan - Diagnosis (1) Chest pain Qualifiers: Chest pain type: unspecified Qualified Code(s): R07.9 - Chest pain, unspecified Is this a current diagnosis for this admission?: Yes (2) CAD (coronary artery disease), [place] coronary artery Qualifiers: [place] vs. transplanted heart: [place] heart Is this a current diagnosis for this admission?: Yes (3) Non-STEMI (non-ST elevated myocardial infarction) Is this a current diagnosis for this admission?: Yes (4) History of heart valve replacement Is this a current diagnosis for this admission?: Yes (5) Hypertension Qualifiers: Hypertension type: essential hypertension Qualified Code(s): I10 - Essential (primary) hypertension Is this a current diagnosis for this admission?: Yes (6) Dyslipidemia Is this a current diagnosis for this admission?: Yes (7) Biventricular cardiac pacemaker in situ Is this a current diagnosis for this admission?: Yes - Notes Notes: 2D echocardiogram results reviewed. Patient has been asymptomatic since admission. Discussed with patient about a nuclear stress test. She is now agreeable to pursue this testing here. Chest pain: Patient had chest pain and positive troponin I, therefore does rule in for non-STEMI according to WHO criteria. At this point however patient is chest pain-free and stable. Did discuss further evaluation with either heart catheterization or noninvasive assessment for extent of ischemia. Patient now prefers to have nuclear stress test here. CAD: Recommend optimization of medical management. Recommend statins, beta- jasmyn, NAN inhibitor/ARB. Non-STEMI: Patient has ruled in for this by way of cardiac enzymes and presents of chest pain. Follow cardiac enzymes and EKGs on a daily basis. History of heart valve replacement. Patient does give a history of heart valve replacement. [facility]. Hypertension: Blood pressure goal should be 135/85 or less in this patient. Dyslipidemia: Agree with high potency statin therapy. Biventricular ICD pacemaker in place: Currently patient is stable and review of telemetry strip shows normal functioning. - Time Time with patient: Greater than 35 minutes - More than 50% of the time spent coordinating care, discussing management plans with involved caregivers. Management plans discussed with involved personnels. Medical decision making was of moderate to high complexity, patient's has multiple comorbidities. Medications reviewed and adjusted accordingly: Yes
--- NOTE | 2018-06-03 19:21 | PROGRESS NOTE E ---
Progress Note NAME: YIMI WAYNE : 1945 AGE: 72Y DATE: 06/03/2018 ROOM: 323 SUBJECTIVE: The patient is currently lying in bed. She states that she feels fine. Does admit to some intermittent dizziness, but states that is her baseline. She denies any nausea, vomiting or diarrhea. No shortness of breath, dizziness or chest pain. No heart palpitations. No fever or chills. Patient has been afebrile. Blood pressure has been in good range. The patient has not voiced any other concerns at this time. REVIEW OF SYSTEMS: The rest of the review of systems is negative. MEDICATIONS: Reviewed. OBJECTIVE: GENERAL: The patient is a 72-year-old female who is awake, alert and oriented to person, place, time and situation. She is verbal and conversational. Does not appear to be in distress. VITAL SIGNS: Temperature is 98.1, pulse 60, respirations 16, blood pressure 123/73, oxygen saturation 99% on room air. SKIN: Warm and dry. No rash. Not diaphoretic. HEENT: Pupils equal, round and reactive to light and accommodation. Conjunctivae are pink. No evidence of JVP. CVS: Heart is regular. It is paced. No rub. CHEST: Clear, symmetrical, unlabored. ABDOMEN: Soft, nontender, nondistended. BACK: No CVA tenderness or sacral edema. EXTREMITIES: No clubbing, cyanosis or edema. PSYCHIATRIC: Appropriate affect. Pleasant mood. DIAGNOSTICS: Lab values are as follows: Hematology obtained on 06/01/2018: WBC 7.5, hemoglobin 13.6, hematocrit is 40.3, platelet count is 161,000. Chemistry obtained on 06/02/2018: Sodium is 140, potassium 5.0, chloride is 104, carbon dioxide is 24, BUN 27, creatinine is 0.94. Glucose 96. Calcium is 9.6. Troponin is 0.475. IMPRESSION AND PLAN: 1. CHEST PAIN. The patient does have underlying known CAD as well as valvular disease. The patient did have elevated troponins as well. The patient has been seen and evaluated by Cardiology and is to have a stress test in the a.m. 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 It appears the patient's troponin has peaked and trended down. 2. HISTORY OF HEP C. DISPOSITION: The patient is FULL CODE. Pending patient's symptomatology and diagnostic findings, will reevaluate in the a.m. Time spent on this followup, including assessment, plan, physical examination, patient education and review of records, is 20 minutes. DICTATING PHYSICIAN: DAI GRIFFITHS NP [id number] PHY#: [id number] ID: [id number] JOB#: [id number] ACCT: [id number] cc: > MTDD
[2018-06-03] MEDS: ATORVASTATIN CALCIUM 40 MG TABLET PO SCH (22:06)
--- NOTE | 2018-06-04 08:20 | EKG REPORT ---
SEVERITY:- ABNORMAL ECG - ATRIAL-PACED COMPLEXES VENTRICULAR SENSED . INCOMPLETE LEFT BUNDLE BRANCH BLOCK LVH WITH SECONDARY REPOLARIZATION ABNORMALITY : Confirmed by: John Castro MD 04-Jun-2018 08:19:57
--- NOTE | 2018-06-04 08:20 | EKG REPORT ---
SEVERITY:- ABNORMAL ECG - ATRIAL-SENSED VENTRICULAR-PACED RHYTHM : Confirmed by: John Castro MD 04-Jun-2018 08:19:13
--- NOTE | 2018-06-04 08:20 | EKG REPORT ---
SEVERITY:- ABNORMAL ECG - ATRIAL-SENSED VENTRICULAR-PACED RHYTHM : Confirmed by: John Castro MD 04-Jun-2018 08:18:51
[2018-06-04] MEDS ORDERED: REGADENOSON INJ 0.4 MG/5 ML DISP.SYRIN IV ONE (10:00)
[2018-06-04] MEDS: METOPROLOL SUCCINATE 25 MG TAB.SR.24H PO SCH (11:53)
[2018-06-04] MEDS: ASPIRIN 81 MG TABLET, ENT COATED PO SCH (11:54)
[2018-06-04] MEDS: LISINOPRIL 10 MG TABLET PO SCH (11:54)
[2018-06-04] MEDS: APIXABAN 5 MG TABLET PO SCH (11:55)
--- NOTE | 2018-06-04 13:13 | DRAGON STRESS TEST REPORT ---
INTRAVENOUS LEXISCAN CARDIOLITE STRESS TEST USING SINGLE PHOTON EMMISION COMPUTERIZED TOMOGRAPHIC. DATE OF PROCEDURE: June 04, 2018, INDICATION : Chest pain CARDIAC RISK FACTORS: Known history of CAD, hypertension, dyslipidemia RESTING EKG: A sensed V paced beats STRESS EKG: No significant ST segment changes noted with LexiScan bolus REASON FOR TERMINATION: Protocol. PROCEDURE REPORT: Baseline heart rate 79 beats per minute with blood pressure of 114/72. Patient had no significant complaints. Patient was bolused with Lexiscan 0.4 mg intravenously followed by saline bolus. Heart rate at 2 minutes post bolus 111 with a blood pressure of 118/77. 3 minutes post bolus heart rate 110 with blood pressure of 103/72. No significant EKG changes were noted. Patient had no significant complaints during the procedure or postprocedure. CONCLUSIONS: Normal EKG and hemodynamic response to IV LexiScan. NUCLEAR DATA: At rest the patient was given 11.91 millicuries of technetium 99 sestamibi injected intravenously. As per protocol rest gated SPECT images were obtained. On day of stress test, the patient was given intravenous LexiScan at a dose of 0.4 mg in 5 mL intravenously, followed by flush with normal saline. Subsequently the stress dose of 32.3 millicuries of technetium 99 sestamibi was injected intravenously. As per protocol stress gated images were obtained. NUCLEAR INTERPRETATION: Both raw and processed data were used for interpretation. Visual, qualitative, computer-generated quantitative data was used. There was good myocardial uptake of technetium compound. Motion artifact and soft tissue attenuations were noted. Increased visceral uptake was noted. No definitive areas of transient perfusion defect noted, an area of mild decreased uptake, relatively fixed noted in the basal and mid inferior wall consistent with prior mild scar.. EKG gated imaging showed LV EF at 42 %, rest and stress gated EF similar visually. T. I D. ratio was 0.99. Lung heart ratio noted to be within normal limits 0.32. No significant extracardiac and abnormal radiotracer activities were noted. RV free wall uptake was noted to be WNL. IMPRESSION: Also refer to comments under nuclear interpretation. Also test results needs to be interpreted in the context of pretest probability. 1. No definitive areas of transient perfusion defect or ischemia noted. 2. An area of mild decreased uptake, relatively fixed noted in the basal and mid inferior wall consistent with prior mild scar. 3. EKG gated imaging shows left ventricular ejection fraction of approx. 42 %. 4. Clinical correlation requested as occasionally worse disease or balanced ischemia could be missed. In approximately 10% of the cases Lexiscan may not cause adequate vasodilatory stress. RECOMMENDATIONS: Aggressive risk factor modification and medical management. Further evaluation may be needed if continued symptoms or other high risk indicators are noted on clinical evaluation. Close cardiology follow-up is also recommended. Clinical correlation with echocardiogram derived ejection fraction. Inability to exercise by itself can lead to increased cardiovascular event risks. Consider cardiology consultation and or follow-up if clinically indicated. I am available for cardiology evaluation and consultation if requested by the media account executive, unless patient already has a fire prevention officer. Dr. Adiel Huang. MRCP Board certified in cardiology and sleep medicine. Board certified in nuclear cardiology, adult echocardiography. [place]
--- NOTE | 2018-06-04 15:08 | PDOC DISCHARGE SUMMARY ---
General - Admit/Disc Date/PCP Admission Date/Primary Care Provider: 06/02/18 14:44 Discharge Date: 06/04/18 - Discharge Diagnosis (1) Biventricular cardiac pacemaker in situ Is this a current diagnosis for this admission?: Yes (2) CAD (coronary artery disease), [place] coronary artery Is this a current diagnosis for this admission?: Yes (3) Chest pain Is this a current diagnosis for this admission?: Yes (4) Dyslipidemia Is this a current diagnosis for this admission?: Yes (5) History of heart valve replacement Is this a current diagnosis for this admission?: Yes (6) Hypertension Is this a current diagnosis for this admission?: Yes (7) Non-STEMI (non-ST elevated myocardial infarction) Is this a current diagnosis for this admission?: Yes (8) Troponin I above reference range Is this a current diagnosis for this admission?: Yes - Additional Information Resuscitation Status: Full Code Discharge Diet: As Tolerated, Cardiac Discharge Activity: Activity As Tolerated Home Medications: Apixaban [Eliquis 5 mg Tablet] 5 mg PO Q12 06/01/18 Aspirin [Ecotrin 81 mg EC Tablet] 81 mg PO DAILY 06/01/18 Atorvastatin Calcium [Lipitor 40 mg Tablet] 40 mg PO QHS 06/01/18 Lisinopril [Prinivil 10 mg Tablet] 10 mg PO DAILY 06/01/18 Metoprolol Succinate [Toprol Xl 25 mg Tab.sr] 25 mg PO DAILY 06/01/18 Multivitamin [Tab-A-[place] (Multiple Vitamin) Tablet] 1 tab PO DAILY 06/01/18 Vitamin B Complex [B Complex] 1 cap PO DAILY 06/01/18 History of Present Illness History of Present Illness: YIMI WAYNE is a 72 year old femaleWho presents with chest pain and chest tightness that seemed similar to what she had in September of last year when she had a heart attack. She is currently chest pain-free. She says she took some baby aspirin and she was actually able to sleep as the chest pain at all called at rest and when she was about to go to bed. She has had no recurrence of the chest pain however she called her infection control coordinator this morning who advised her to come to the emergency room for evaluation. It appears that she had a CABG done as well as valve replacement back in September. She says she has been compliant with her medications since then. She denies any nausea vomiting fever cough diaphoresis dizziness shortness of breath or any other pertinent symptoms Hospital Course Hospital Course: Patient underwent stress test that was negative. Her echocardiogram was also unremarkable with normal ejection fraction. Her chest pain has resolved. Troponin levels decreased. She was cleared by cardiology for discharge. She should continue her cardiac medications upon discharge. Physical Exam Vital Signs: Temp Pulse Resp BP Pulse Ox 98.1 F 66 18 119/62 99 06/04/18 07:24 06/04/18 07:24 06/04/18 07:24 06/04/18 07:24 06/04/18 07:24 Intake & Output 06/03/18 06/04/18 06/05/18 06:59 06:59 06:59 Intake Total 550 1274 250 Balance 550 1274 250 Weight 162 lb 4.163 oz 161 lb 6.054 oz General appearance: PRESENT: no acute distress, cooperative Head exam: PRESENT: atraumatic, normocephalic Eye exam: PRESENT: EOMI. ABSENT: conjunctival injection Ear exam: ABSENT: bleeding, drainage Mouth exam: PRESENT: moist, neck supple Throat exam: ABSENT: post pharyngeal erythema Neck exam: ABSENT: meningismus, tenderness, thyromegaly Respiratory exam: PRESENT: clear to auscultation lucia. ABSENT: accessory muscle use Cardiovascular exam: PRESENT: RRR, systolic murmur Pulses: PRESENT: normal radial pulses GI/Abdominal exam: PRESENT: normal bowel sounds. ABSENT: ascites Musculoskeletal exam: PRESENT: ambulatory Neurological exam: PRESENT: alert, altered, awake, oriented to person, oriented to place, oriented to time, oriented to situation Psychiatric exam: ABSENT: agitated, anxious, appropriate affect, depressed Results Laboratory Results: 06/03/18 15:25 06/03/18 15:25 Sodium 143.4 Potassium 4.3 Chloride 106 Carbon Dioxide 23 Anion Gap 14 BUN 27 H Creatinine 0.92 Est GFR ( Amer) > 60 Est GFR (Non-Af Amer) > 60 Glucose 86 Calcium 9.4 Magnesium 1.9 06/03/18 06/04/18 15:25 07:05 Troponin I 0.142 NT-Pro-B Natriuret Pep 562 Impressions: Chest X-Ray 06/01/18 14:04 IMPRESSION: COPD. NO ACUTE RADIOGRAPHIC FINDING IN THE CHEST. Qualifiers - * PATIENT BEING DISCHARGED WITH ANY OF THE FOLLOWING DIAGNOSIS: TX TX Pt being discharged on Aspirin therapy?: Yes TX Pt being discharged on Statins?: Yes TX Pt discharged ACEI/ARBS?: Yes
[2018-06-04 15:53] VITALS: BP 111/87
--- NOTE | 2018-06-04 19:29 | PDOC PROGRESS REPORT ---
Subjective Progress Note for:: 06/04/18 Subjective:: Patient claims she has ambulated inside the room and also. There has been no recurrence of chest pain. She is claiming to be feeling fine. In the morning nuclear stress test procedure, risk benefits were discussed in detail. Patient subsequently underwent nuclear stress test. Nuclear stress test results were then discussed in the afternoon. Patient's all questions were answered. Patient is maintaining a sensed V paced rhythm Review of systems: Rest review of systems negative. Medications: Medications have been reviewed. Reason For Visit: CHEST PAIN ELEVATED TROPONIN I LEVEL Physical Exam Vital Signs: Temp Pulse Resp BP Pulse Ox 98.4 F 75 18 111/87 H 99 06/04/18 15:49 06/04/18 15:49 06/04/18 15:49 06/04/18 15:49 06/04/18 15:49 Intake & Output 06/03/18 06/04/18 06/05/18 06:59 06:59 06:59 Intake Total 550 1274 250 Balance 550 1274 250 Weight 73.6 kg 73.2 kg Exam: GENERAL: well-nourished and in no acute distress. Alert and oriented x3 HEAD: Atraumatic, normocephalic. EYES: Pupils equal round and reactive to light, extraocular movements intact, sclera anicteric, conjunctiva are normal. ENT: TMs normal, nares patent, oropharynx clear without exudates. Moist mucous membranes. No oral ulcerations or bleeding gums noted NECK: supple without lymphadenopathy. Trachea is central. No cervical or axillary lymphadenopathy noted. Carotids are 2+, JVD WNL LUNGS: Respiration seems nonlabored, no significant accessory muscle action noted. Breath sounds clear to auscultation bilaterally and equal noted. No wheezes rales or rhonchi noted. No significant dullness noted on percussion. CHEST: Palpation of the chest wall shows no significant chest wall tenderness. 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 ABDOMEN: Soft, no significant tenderness appreciated, normoactive bowel sounds. No guarding, no rebound. No rigidity noted . No masses appreciated. EXTREMITIES: Pedal pulses are 1-2+, no calf tenderness noted. No clubbing or cyanosis. negative pedal edema noted NEUROLOGICAL: Focused neurological exam showed no significant neurologic deficit. Normal speech, no focal weakness appreciated. PSYCH: Normal mood, normal affect. Judgment and insight within normal limits. SKIN: No significant ecchymosis, skin is noted to be warm. MUSCULOSKELETAL EXAM: No significant acute joint swelling noted. Results Laboratory Results: 06/03/18 15:25 06/03/18 06/04/18 15:25 07:05 Troponin I 0.142 NT-Pro-B Natriuret Pep 562 EKG Comments: Shows a sensed V paced rhythm. Impressions: Chest X-Ray 06/01/18 14:04 IMPRESSION: COPD. NO ACUTE RADIOGRAPHIC FINDING IN THE CHEST. Assessment & Plan - Diagnosis (1) Chest pain Qualifiers: Chest pain type: unspecified Qualified Code(s): R07.9 - Chest pain, unspecified Is this a current diagnosis for this admission?: Yes (2) CAD (coronary artery disease), [place] coronary artery Qualifiers: [place] vs. transplanted heart: [place] heart Is this a current diagnosis for this admission?: Yes (3) Non-STEMI (non-ST elevated myocardial infarction) Is this a current diagnosis for this admission?: Yes (4) History of heart valve replacement Is this a current diagnosis for this admission?: Yes (5) Hypertension Qualifiers: Hypertension type: essential hypertension Qualified Code(s): I10 - Essential (primary) hypertension Is this a current diagnosis for this admission?: Yes (6) Dyslipidemia Is this a current diagnosis for this admission?: Yes (7) Biventricular cardiac pacemaker in situ Is this a current diagnosis for this admission?: Yes - Notes Notes: Chest pain: Patient had chest pain and positive troponin I, therefore does rule in for non-STEMI according to WHO criteria. At this point however patient is chest pain-free and stable. Patient had further evaluation for a nuclear stress test. Nuclear stress test was negative for any significant areas of ischemia. Mild fixed defect was noted in the basal and mid inferior wall. Overall SDS score and SRS score was very low therefore felt to be low risk. These results were discussed with the patient. Discussed that based on stress test results, she is likely to do well medical management. Patient was however informed that close cardiology follow-up is indicated and heart catheterization may become necessary if she has recurrence of chest pains. Patient understands this. CAD: Recommend optimization of medical management. Recommend statins, beta- jasmyn, NAN inhibitor/ARB. Non-STEMI: Patient has ruled in for this by way of cardiac enzymes and presents of chest pain. Follow cardiac enzymes and EKGs on a daily basis. History of heart valve replacement. Patient does give a history of heart valve replacement. Will try obtain records from [facility]. Hypertension: Blood pressure goal should be 135/85 or less in this patient. Dyslipidemia: Agree with high potency statin therapy. Biventricular ICD pacemaker in place: Currently patient is stable and review of telemetry strip shows normal functioning. Patient gives history of snoring, daytime fatigue and sleepiness. Discussed that all CAD patient benefit from a sleep study and for this she would like to follow-up with me. Patient was encouraged to keep follow-up with her primary care gis analyst and freight router. - Time Time with patient: Greater than 35 minutes - More than 50% of the time spent coordinating care, discussing management plans with involved caregivers. Management plans discussed with involved personnels. Medical decision making was of moderate to high complexity, patient's has multiple comorbidities. Significant time spent discussing results of nuclear stress test results of echocardiogram, management plans etc. Medications reviewed and adjusted accordingly: Yes
== END 2018-06-04 16:40 | disposition home or self-care (01) | DRG 282 ==
LOC: ER 13:06 → EH 18:57 → 3W 22:00 → OBSVTOIN 06-02 14:44
PROVIDERS: ADMIT Internal Medicine; ATTEND Internal Medicine
DX: I21.4 Non-ST elevation (NSTEMI) myocardial infarction (principal); R07.9 Chest pain, unspecified; I25.10 Atherosclerotic heart disease of native coronary artery without angina pectoris; I10 Essential (primary) hypertension; E78.5 Hyperlipidemia, unspecified; B19.20 Unspecified viral hepatitis C without hepatic coma; I25.2 Old myocardial infarction; Z87.891 Personal history of nicotine dependence; Z95.1 Presence of aortocoronary bypass graft; Z79.01 Long term (current) use of anticoagulants; Z79.82 Long term (current) use of aspirin; Z79.899 Other long term (current) drug therapy; Z95.0 Presence of cardiac pacemaker; Z95.2 Presence of prosthetic heart valve
CPT/HCPCS: 36415; 71046; 78452; 80048; 80053; 81001; 82550; 82553; 83735; 83880; 84484; 85025; 93005; 93010; 93017; 93306; 99285; A9500; G0378; J2785; J3490; Q9969